=== PATIENT | male | born 1970 | race Caucasian/White ===

== ENCOUNTER 2021-11-19 21:36 | Emergency (ER) | payer SELFPAY ==
[~2021-11-19] VITALS: Ht 157.5 cm; Wt 80.7 kg
[2021-11-19] MEDS ORDERED: LIDOCAINE 1%-EPI 1:100,000 20 ML VIAL ONE (22:11)
--- NOTE | 2021-11-19 22:11 | NUR ---
Lidocaine with epinephrine 1% pulled out of the [facility] at [address]. Dr. Odonnell forgot to put in the order for the medication.
--- NOTE | 2021-11-19 22:25 | NUR ---
Dr. Odonnell at bedside
[2021-11-20 00:36] LABS: POTASSIUM 4.6 mmol/L (3.5-5.1)
[2021-11-20 00:45] LABS: HEMATOCRIT 39.6 % (36.7-47.1); MEAN CORPUSCULAR HEMOGLOBIN 29.3 uug (23.8-33.4); MEAN CORPUSCULAR VOLUME 85.1 fL (73.0-96.2); PLATELET COUNT (AUTO) 320 K/uL (152-348)
[2021-11-20] MEDS ORDERED: ONDA4TAB5 PO (01:11)
[2021-11-20] MEDS ORDERED: HYDR-4209 PO (01:11)
[2021-11-20] MEDS ORDERED: HYDROCODONE/APAP 10-325 MG TABLET PO ONE (01:15)
[2021-11-20] MEDS ORDERED: ONDANSETRON ODT 4 MG TAB.RAPDIS SL ONE (01:15)
[2021-11-20 02:06] VITALS: BP 115/78
--- NOTE | 2021-11-20 02:07 | NUR ---
Patient discharged to home in stable condition. Written and verbal after care instructions given. Patient verbalizes understanding of instructions. Stressed follow up or return to ER for worsening s/s.
== END 2021-11-20 02:07 | disposition home or self-care (01) ==
LOC: ER 21:39
DX: K91.841 Postprocedural hemorrhage of a digestive system organ or structure following other procedure (principal); Y83.8 Other surgical procedures as the cause of abnormal reaction of the patient, or of later complication, without mention of misadventure at the time of the procedure; Y82.8 Other medical devices associated with adverse incidents; Y92.531 Health care provider office as the place of occurrence of the external cause; E11.65 Type 2 diabetes mellitus with hyperglycemia; Z79.4 Long term (current) use of insulin
CPT/HCPCS: 99284; 41899; 80048; 85025; 85610; 36415; J3490; A4663